=== PATIENT | male | born 1940 | race Caucasian/White ===

== ENCOUNTER 2018-01-29 02:27 | Emergency (ER) | payer MEDICARE ==
[~2018-01-29] VITALS: Ht 182.9 cm; Wt 102.3 kg
[~2018-01-29 02:27] MED LIST: BACT800T5 PO; BAYE325T3 PO; CEPH500C3 PO; EXEN10PE SQ; FISH1200 PO; LOSA25TA31 PO; METF1000 PO; PIOG15TA9 PO; PRAV80TA PO; PROS5TAB2 PO; SYNT125T PO; TAB-TAB PO; TOPR100T15 PO
[2018-01-29 02:31] VITALS: BP 175/78; PULSE 65; RESP 18; TEMP 97.8; O2SAT 98
[2018-01-29] MEDS ORDERED: PROPARACAINE HCL 0.5% OPHT SOLN 15 ML BTL RIGHT EYE ONE (03:00)
[2018-01-29] MEDS ORDERED: LEVO125T4 PO (03:08)
[2018-01-29] MEDS ORDERED: FISHCAP4 PO (03:08)
[2018-01-29] MEDS ORDERED: ASPI81CH7 CHEW (03:08)
[2018-01-29] MEDS ORDERED: LIOT5TAB3 PO (03:08)
[2018-01-29] MEDS ORDERED: LOSA25TA PO (03:08)
[2018-01-29] MEDS ORDERED: FINA5TAB2 (03:08)
[2018-01-29] MEDS ORDERED: METF1000 PO (03:08)
[2018-01-29] MEDS ORDERED: METO100T PO (03:08)
[2018-01-29] MEDS ORDERED: PRAV80TA2 PO (03:08)
--- NOTE | 2018-01-29 03:27 | PD ---
HPI Chief Complaint: Eye Problems/Injury Time Seen by Provider: 02:48 Travel History International Travel<30 days: No Contact w/Intl Traveler<30days: No Traveled to known affect area: No History of Present Illness HPI The patient is a 77-year-old male who presents to the emergency department for left eye pain and discomfort. The patient was welding and using metal objects, with eye gear in place, when he thought he got a foreign body in his left eye. He complains of left eye pain, foreign body sensation, redness to the left eye, and photophobia. The patient wears reading glasses, but does not wear glasses or contacts on a regular basis. He denies any history of glaucoma. He denies any discomfort of the right eye. He does complain of mild photophobia but denies any headache. Last tetanus shot is unknown. Symptoms are moderate. 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) Other Surgery: Yes Social History Alcohol Use: No Tobacco Use: No Substance Use: No Allergies-Medications (Allergen,Severity, Reaction): Coded Allergies: No Known Allergies (Unverified , 04/14/14) Reported Meds & Prescriptions Reported Meds & Active Scripts Active Reported Fish Oil + D3 (Fish Oil-Cholecalciferol) 1,200-1,000 Mg-Unit Cap 1 Cap PO DAILY Metformin (Metformin HCl) 1,000 Mg Tab 1,000 Mg PO BIDPC Metoprolol Tartrate 100 Mg Tab 100 Mg PO DAILY Losartan (Losartan Potassium) 25 Mg Tab 25 Mg PO DAILY Pravastatin 80 Mg Tab 80 Mg PO DAILY Levothyroxine (Levothyroxine Sodium) 125 Mcg Tab 125 Mcg PO DAILY Aspirin Children's (Aspirin) 81 Mg Chew 81 Mg CHEW DAILY Liothyronine (Liothyronine Sodium) 5 Mcg Tab 5 Mcg PO DAILY Finasteride 5 Mg Tab 5 Mg DAILY Do not crush. Review of Systems Except as stated in HPI: all other systems reviewed are Neg Eyes: Positive: Blurred Vision, Photophobia, Redness, Foreign Body Sensation, Pain, Tearing, Visual changes, No: Drainage HENT: No: Headaches Gastrointestinal: No: Nausea, Vomiting Neurologic: No: Dizziness, Focal Abnormalities Physical Exam Narrative GENERAL: Awake, alert, 77-year-old male who appears his stated age and is in no acute respiratory distress. SKIN: Focused skin assessment warm/dry. HEAD: Atraumatic. Normocephalic. EYES: Pupils equal and round. Pupils are 4 mm bilateral and reactive. EOMs are intact. Mild injection on the left eye. Vision out of the left eye was 20/ 200, right was 20/30, bilateral is 20/25. One drop of proparacaine was applied to the left eye. Pressure was 16 with Praveen-Pen. Fluorescein staining was applied to the left eye and the eye was examined under slit lamp examination. There is no visible foreign body, however, the patient has a snow field like haziness to the cornea. Right eye was within normal limits. ENT: No nasal bleeding or discharge. Mucous membranes pink and moist. NECK: Trachea midline. No JVD. GASTROINTESTINAL: Abdomen soft, non-tender, nondistended. MUSCULOSKELETAL: Prosthesis on the left lower extremity NEUROLOGICAL: Awake and alert. No obvious cranial nerve deficits. Motor grossly within normal limits. Normal speech. PSYCHIATRIC: Appropriate mood and affect; insight and judgment normal. Data Data Last Documented VS Vital Signs Date Time Temp Pulse Resp B/P (MAP) Pulse Ox O2 Delivery O2 Flow Rate FiO2 01/29/18 02:31 97.8 65 18 175/78 (110) 98 Orders Orders Proparacaine 0.5% Opth Soln (Alcaine 0.5 (01/29/18 03:00) Tetanus/Diphtheria Tox Adult (Tetanus/Di (01/29/18 03:45) Polymyxin/Trimethop Opht Soln (Polytrim (01/29/18 03:45) MDM Medical Decision Making Medical Screen Exam Complete: Yes Emergency Medical Condition: Yes Medical Record Reviewed: Yes Differential Diagnosis Differential diagnosis includes keratitis, uveitis, iritis, foreign body, hyphema, corneal abrasion, corneal ulcer, episcleritis, glaucoma. Narrative Course One drop of proparacaine was applied to the left eye, pressure was normal at 16. Slit-lamp examination was performed with fluorescein staining, revealing a haziness, snowfield like appearance. Patient did have decreased vision on the left eye with photophobia, therefore, place a call was placed to the on-call automatic operator, Dr. Weller, 3:26 AM. I discussed the patient with Dr. Weller who will see the patient in the morning. The patient was administered 1 drop of Polytrim to the left eye will be discharged with Polytrim. He is advised to use it every 4-6 hours until he is seen by Dr. Weller. Diagnosis Primary Impression: Redness of eye, left Referrals: Meliza Weller MD 1 day Call after 9 AM to be seen tomorrow. Additional Instructions: Polytrim every 4-6 hours to the left eye as directed. Follow-up with Dr. Weller in the morning. Return if symptoms worsen or progress. Med/Other Pt SpecificInfo: Prescription(s) given Disposition: 01 DISCHARGE HOME Condition: Stable Kana Chavez MD Jan 29, 2018 03:27
[2018-01-29] MEDS ORDERED: POLYMYXIN/TRIMETHOPRIM OPHT SOLN 10 ML BTL LEFT EYE ONE (03:45)
[2018-01-29] MEDS ORDERED: TETANUS/DIPHTHERIA TOXOID ADULT 0.5 ML VIAL IM ONE (03:45)
[2018-01-29 04:02] VITALS: BP 145/68
== END 2018-01-29 04:04 | disposition home or self-care (01) ==
LOC: PHED 02:27
DX: H10.9 Unspecified conjunctivitis (principal); E78.00 Pure hypercholesterolemia, unspecified; E11.9 Type 2 diabetes mellitus without complications; I10 Essential (primary) hypertension; I25.2 Old myocardial infarction; E07.9 Disorder of thyroid, unspecified; Z85.118 Personal history of other malignant neoplasm of bronchus and lung; Z79.82 Long term (current) use of aspirin; Z23 Encounter for immunization
CPT/HCPCS: 90471; 90714